=== PATIENT | female | born 1960 | race Caucasian/White ===

== ENCOUNTER 2025-01-23 09:17 | Inpatient (IN) | payer MEDICARE, OTHER ==
[2025-01-23] MEDS ORDERED: GENTAMICIN 80 MG/2 ML VIAL ONE (12:00)
[2025-01-23] MEDS ORDERED: VANCOMYCIN 1 GM VIAL ONE (12:00)
[2025-01-23] MEDS ORDERED: BUPIVACAINE 0.5 % PF 150 MG/30 ML VIAL ONE (12:00)
[2025-01-23] MEDS ORDERED: dexaMETHasone SOD PHOSPHATE 1 ML ONE (12:00)
[2025-01-23] MEDS ORDERED: LIDOCAINE 2%-EPI 1:100,000 30 ML VIAL ONE (12:00)
[2025-01-23] MEDS ORDERED: ROCURONIUM BROMIDE 50 MG/5 ML ONE (12:03)
[2025-01-23] MEDS ORDERED: CEFAZOLIN 1 GM ONE (13:09)
[2025-01-23] MEDS ORDERED: LORA10TA7 PO (16:36)
[2025-01-23] MEDS ORDERED: ACET-73 PO (16:36)
[2025-01-23] MEDS ORDERED: OMEP40CA21 PO (16:36)
[2025-01-23] MEDS ORDERED: LOSA100T31 PO (16:36)
[2025-01-23] MEDS ORDERED: ONDANSETRON HCL/PF 4 MG/2 ML VIAL IV PRN (17:00)
[2025-01-23] MEDS ORDERED: IV NS 0.9% 1,000 ML BAG IV SCH (17:00)
[2025-01-23] MEDS ORDERED: HYDROMORPHONE 1 MG/1 ML DISP.SYRIN IV PRN (17:00)
[2025-01-23] MEDS ORDERED: ACETAMINOPHEN 325 MG TABLET PO PRN (19:00)
[2025-01-23] MEDS ORDERED: Z GUARD REMEDY 4 OZ OINT TP PRN (19:00)
[2025-01-23] MEDS ORDERED: MAGNESIUM HYDROXIDE 30 ML UDC PO PRN (19:00)
[2025-01-23] MEDS ORDERED: ACETAMINOPHEN ES 500 MG TABLET PO PRN (19:00)
[2025-01-23] MEDS ORDERED: MAG HYDROX/AL HYDROX/SIMETH 30 ML UDC PO PRN (19:00)
[2025-01-23] MEDS ORDERED: ONDANSETRON HCL/PF 4 MG/2 ML VIAL IVP PRN (19:00)
[2025-01-23] MEDS ORDERED: IV NS 0.9% 1,000 ML IV PRN (19:30)
[2025-01-23 20:00] VITALS: BP 130/86; TEMP 97.9; O2SAT 99
[2025-01-23] MEDS: VANCOMYCIN HCL 1 GM in IV D5W 250 ML IV SCH (23:11)
[2025-01-24 07:30] VITALS: BP 129/76; TEMP 98.1; O2SAT 99
[2025-01-24] MEDS: LORATADINE 10 MG TABLET PO SCH (09:34)
[2025-01-24] MEDS: PANTOPRAZOLE 40 MG TABLET.DR PO SCH (09:34)
[2025-01-24 09:36] VITALS: BP 121/76
[2025-01-24] MEDS: LOSARTAN POTASSIUM 50 MG TABLET PO SCH (09:36)
== END 2025-01-24 14:30 | disposition home or self-care (01) | DRG 141 ==
LOC: DS 09:17 → MED 11:37
PROVIDERS: ADMIT Internal Medicine; ATTEND Internal Medicine
PROC: 0NUR07Z Supplement Maxilla with Autologous Tissue Substitute, Open Approach (ICD-10-PCS; 2025-01-23)
PROC: 0JB10ZZ Excision of Face Subcutaneous Tissue and Fascia, Open Approach (ICD-10-PCS; 2025-01-23)
PROC: 0NBR0ZZ Excision of Maxilla, Open Approach (ICD-10-PCS; 2025-01-23)
PROC: 0NSR04Z Reposition Maxilla with Internal Fixation Device, Open Approach (ICD-10-PCS; principal; 2025-01-23 10:30)
DX: S02.40CA Maxillary fracture, right side, initial encounter for closed fracture (principal); A42.89 Other forms of actinomycosis; T81.83XA Persistent postprocedural fistula, initial encounter; M27.2 Inflammatory conditions of jaws; S02.40DA Maxillary fracture, left side, initial encounter for closed fracture; D16.4 Benign neoplasm of bones of skull and face; I10 Essential (primary) hypertension; Y93.9 Activity, unspecified; K21.9 Gastro-esophageal reflux disease without esophagitis; X58.XXXA Exposure to other specified factors, initial encounter; Y92.009 Unspecified place in unspecified non-institutional (private) residence as the place of occurrence of the external cause; K13.79 Other lesions of oral mucosa; D16.5 Benign neoplasm of lower jaw bone
CPT/HCPCS: 36415; 71045-TC; 71046; 80053-TC; 85025-TC; 85610-TC; 85730-TC; 88305-TC; 88311-TC; 88312-TC; 88341; 88342; A4223; A4338; C1713; G0378; J0690; J1100; J1580; J2704; J3373; J3490; J7030; J7060